=== PATIENT | female | born 1970 | race Caucasian/White ===

== ENCOUNTER → 2019-03-11 10:19 | Outpatient (CLI) | payer BC, SELFPAY ==
--- NOTE | ~2019-03-11 | XR_ITS ---
EXAMINATION: XR chest 2V 03/11/2019 10:26 INDICATION: Chest palpitations PROCEDURE: 2 view chest COMPARISON: No prior studies for comparison. FINDINGS: The lungs are clear. The cardiomediastinal silhouette is within normal limits. There are no pleural effusions. There is no pneumothorax suspected. IMPRESSION: 1: NO ACUTE CARDIOPULMONARY DISEASE. Reviewed, dictated and finalized at location A. T SERVICES ATTENDANT
== END ==
PROVIDERS: PCP Family Medicine; Visit Provider Family Medicine
DX: R00.2 Palpitations (principal)
CPT/HCPCS: 71046

== ENCOUNTER 2019-04-04 10:20 | Outpatient (CLI) | payer BC, SELFPAY ==
--- NOTE | 2019-04-06 15:37 | WPDHOLTEREM ---
Holter/Event Monitor Holter/Event Monitor Date of procedure: 04/06/19 Procedure Type: 48 hour Holter monitor Diagnosis: palpitations Indications: palpitations Image/Tracing Quality: good Finding: underlying normal sinus rhythm with heart rate variability between 54 and 156 beats per minute with an average heart rate of 81 beats per minute. Low frequency ventricular ectopy totaling 192 beats. This consisted of 2 couplets, 2 interpolated PVCs and all the rest were isolated single premature ventricular contractions. No sustained or nonsustained runs of ventricular arrhythmia. Frequent supraventricular ectopy totaling 4389 beats ( 1.9%) This did consistent 10 atrial runs totaling 107 beats with the longest run being for 24 beats in a fastest run being at a rate of 158 beats per minute. There is also 79 atrial couplets 3973 isolated PACs, 3 beats in atrial bigeminy and 148 beats in atrial trigeminy. No atrial fibrillation Longest RR interval was 1.5 seconds. The AV and IV conduction systems were within normal limits. Three symptom events of fluttering in the chest were reviewed. These correlated at that exact time to sinus rhythm only and on 1 occasion premature atrial contractions. Conclusion: 1. Underlying normal sinus rhythm with average heart rate of 81 beats per minute. 2. Low frequency ventricular ectopy 3. Frequent supraventricular ectopy including several short atrial runs which appeared to be runs of atrial tachycardia as detailed above. Also frequent isolated PACs and rare atrial bigeminy and atrial trigeminy. 4. No significant pauses or heart block. No atrial fibrillation
== END 2019-04-04 10:21 | disposition home or self-care (01) ==
PROVIDERS: PCP Family Medicine; Visit Provider Family Medicine
DX: R00.2 Palpitations (principal)
CPT/HCPCS: 93225; 93226

== ENCOUNTER → 2019-08-25 07:49 | Outpatient (CLI) | payer BC, SELFPAY ==
--- NOTE | ~2019-08-25 | MMUS_ITS ---
EXAMINATION: MM diagnostic anastacio BI w deny, US breast RT limited HISTORY: Six-month follow-up for probably benign right breast mass TECHNIQUE: Craniocaudal, mediolateral, and mediolateral oblique 3-D tomosynthesis images of the right breast were performed and synthetic 2-D images were generated. CAD analysis was submitted and interp reted. High resolution limited right breast ultrasound was performed. COMPARISON: 03/09/2019, 07/14/2018, 07/07/2018, 06/24/2017, 04/14/2012 BREAST PARENCHYMAL COMPOSITION: The breasts are heterogeneously dense, which may obscure small masses . FINDINGS: MAMMOGRAPHIC FINDINGS: Right breast: An asymmetry in the anterior third of the lower inner right breast is stable on multipl e prior examinations. There has been no suspicious interval change. There is no suspicious mass, calc ification, or architectural distortion. Left breast: There is no evidence of suspicious mass, calcification, or architectural distortion to suggest malignancy. There has been no suspicious interval change. ULTRASOUND: A 4 mm x 2 mm oval, circumscribed, parallel, hypoechoic mass with no posterior features or internal v ascularity is seen at the 4:00 location 4 cm from the nipple. No new suspicious cystic or solid mass is identified. IMPRESSION: 1. Stable, probably benign right breast mass 2. Given one year of interval stability, recommend 12 month followup right diagnostic mammogram and u ltrasound. BI-RADS category 3, probably benign findings. Reviewed, dictated and finalized at location A. IMPRESSION: 1. Stable, probably benign right breast mass 2. Given one year of interval stability, recommend 12 month followup right diag nostic mammogram and ultrasound. BI-RADS category 3, probably benign findings.
== END ==
PROVIDERS: Referring Provider Obstetrics & Gynecology Gynecology; Visit Provider Nurse Practitioner
DX: R92.8 Other abnormal and inconclusive findings on diagnostic imaging of breast (principal)
CPT/HCPCS: 76642; 77062; 77066; G0279

== ENCOUNTER → 2020-08-26 08:16 | Outpatient (CLI) | payer OTHER, SELFPAY ==
--- NOTE | ~2020-08-26 | MMUS_ITS ---
EXAMINATION: MM diagnostic anastacio BI w deny, US breast RT limited HISTORY: Follow-up right breast asymmetries TECHNIQUE: Additional 3-D tomosynthesis images of the right breast were performed and synthetic 2-D i mages were generated. CAD analysis was submitted and interpreted. High resolution Limited right breas t ultrasound was performed. COMPARISON: Comparison to multiple prior studies sequentially, with oldest reviewed study dated 09/2016. BREAST PARENCHYMAL COMPOSITION: The breasts are heterogenously dense, which may obscure small masses FINDINGS: MAMMOGRAPHIC FINDINGS: . There are no discrete masses, calcifications or architectural distortion to suggest malignancy. Foc al asymmetry medial aspect of the right breast is not significantly changed. ULTRASOUND: Limited right breast ultrasound: Normal heterogeneous echotexture without focal solid or cystic mass. IMPRESSION: 1. No evidence for malignancy in the right breast. 2. Routine yearly screening mammogram and regular clinical breast examination are recommended. BI-RADS Category 2: Benign finding(s). Reviewed, dictated and finalized at location A. IMPRESSION: 1. No evidence for malignancy in the right breast. 2. Routine yearly screening mammogram and regular clinical breast examination a re recommended. BI-RADS Category 2: Benign finding(s).
== END ==
PROVIDERS: PCP Family Medicine; Visit Provider Obstetrics & Gynecology Gynecology
DX: R92.8 Other abnormal and inconclusive findings on diagnostic imaging of breast (principal)
CPT/HCPCS: 76642; 77062; 77066; G0279

== ENCOUNTER → 2021-10-01 15:07 | Outpatient (CLI) | payer OTHER, SELFPAY ==
--- NOTE | ~2021-10-01 | MM_ITS ---
EXAMINATION: MM screening anastacio BI w deny HISTORY: Screening TECHNIQUE: Craniocaudal and mediolateral oblique 3-D tomosynthesis images were obtained and synthetic 2-D images were generated. CAD analysis was submitted and interpreted. COMPARISON: Comparison to multiple prior studies sequentially, with oldest reviewed study dated 06/24. BREAST PARENCHYMAL COMPOSITION: The breasts are heterogeneously dense, which may obscure small masses FINDINGS: There are benign right breast calcifications which layer on the MLO view. There is no evide nce of suspicious mass, calcification, or architectural distortion to suggest malignancy in either br east. There has been no suspicious interval change. IMPRESSION: 1. No mammographic evidence of malignancy. 2. Recommend routine screening mammography in one year. BI-RADS Category 2: Benign finding(s). Reviewed, dictated and finalized at location A.
== END ==
PROVIDERS: PCP Family Medicine; Visit Provider Nurse Practitioner
DX: Z12.31 Encounter for screening mammogram for malignant neoplasm of breast (principal)
CPT/HCPCS: 77063; 77067

== ENCOUNTER → 2022-11-04 12:45 | Outpatient (CLI) | payer BC, SELFPAY ==
--- NOTE | ~2022-11-04 | MM_ITS ---
EXAMINATION: MM screening anastacio BI w deny HISTORY: Screening mammogram TECHNIQUE: Craniocaudal and mediolateral oblique 3-D tomosynthesis images were obtained and synthetic 2-D images were generated. CAD analysis was submitted and interpreted. COMPARISON: 09/27/2021 bilateral screening mammogram 08/26/2020 diagnostic bilateral mammogram and limited right breast ultrasound examination 08/25/2019 diagnostic bilateral mammogram and limited right breast ultrasound 02/20/2019 diagnostic right mammogram and complete right breast ultrasound examination 07/14/2018 right diagnostic mammogram and complete right breast ultrasound 07/07/2018 bilateral screening mammogram BREAST PARENCHYMAL COMPOSITION: The breasts are heterogeneously dense, which may obscure small masses . FINDINGS: Scattered bilateral benign calcifications are noted. There is no evidence of suspicious mas s, calcification, or architectural distortion to suggest malignancy in either breast. There has been no suspicious interval change. IMPRESSION: 1. No mammographic evidence of malignancy. 2. Recommend routine screening mammography in one year. BI-RADS Category 2: Benign finding(s). Reviewed, dictated and finalized at location A.
== END ==
PROVIDERS: PCP Nurse Practitioner; Visit Provider Nurse Practitioner
DX: Z12.31 Encounter for screening mammogram for malignant neoplasm of breast (principal)
CPT/HCPCS: 77063; 77067

== ENCOUNTER 2024-01-04 12:50 | Outpatient (CLI) | payer BC, SELFPAY ==
--- NOTE | ~2024-01-04 | DEXA_ITS ---
Bone Density Report Name: FLASH FREEDMAN Age: 53 Sex: Female Ethnicity: White Date of : 1970 Indication: postmenopausal; screening for osteoporosis; Referring Provider: ANUP ROSARIO Study: Bone densitometry was performed. Exam Date: January 04, 2024 Accession number: [id number] Bone Density: Region BMD T-score Z-score Classification AP Spine(L1-L4) 1.013 -0.3 0.7 Normal Femoral Neck (Left) 0.958 1.0 2.0 Normal Total Hip (Left) 1.164 1.8 2.5 Normal Femoral Neck (Right) 0.930 0.7 1.8 Normal Total Hip (Right) 1.157 1.8 2.4 Normal Total Hip Mean 1.161 1.8 2.5 Normal World Health Organization criteria for BMD impression classify patients as: Normal (T-score at or above -1.0), Osteopenia (T-score between -1.0 and -2.5), or Osteoporosis (T-score at or below -2.5). 10-year Fracture Risk: FRAX not reported because: All T-scores for Spine Total, Hip Total, Femoral Neck at or above -1.0 Clinical Information Provided by Patient: Patient maximum height was 63 Menopause Age: 46 Drinks caffeinated beverages Onset of menses at age 14 Number of children 2 Impression: The patient has normal bone mass. Discussion: BONE DENSITY IS ABOVE THE MINIMUM DESIRABLE LEVEL AT ALL SKELETAL SITES TESTED. This patient?s bone mineral density is above the minimum desirable level (T-score -1.0 or better) at all sites measured. The patient should follow a healthful lifestyle (good nutrition with adequate calcium and vitamin D, and appropriate weight-bearing exercise). Follow-Up: Consider repeating this study in 5 years or sooner if there is some new clinical indication. Reported by: CRISTINA on 01/04/2024 1:48:00 PM. Reviewed, dictated and finalized at location AYury CONTRERAS
== END 2024-01-04 12:51 | disposition home or self-care (01) ==
PROVIDERS: PCP Nurse Practitioner; Visit Provider Obstetrics & Gynecology Gynecology
DX: Z78.0 Asymptomatic menopausal state (principal)
CPT/HCPCS: 77080

== ENCOUNTER 2024-04-05 08:10 | Outpatient (CLI) | payer BC, SELFPAY ==
--- NOTE | ~2024-04-05 | MM_ITS ---
EXAMINATION: MM screening anastacio BI w deny HISTORY: Screening mammogram TECHNIQUE: Craniocaudal and mediolateral oblique 3-D tomosynthesis images were obtained and synthetic 2-D images were generated. CAD analysis was submitted and interpreted. COMPARISON: 11/04/2022, 10/01/2021, 08/26/2020 BREAST PARENCHYMAL COMPOSITION:Not Dense. There are scattered areas of fibroglandular density. FINDINGS: Possible developing asymmetry of the outer, posterior left breast. Stable parenchymal appea taras of the right breast. No suspicious microcalcifications. IMPRESSION: Possible developing left breast asymmetry, as above. Spot compression views, and possibly ultrasound, recommended for further evaluation. BI-RADS Category 0: Incomplete: Needs additional imaging evaluation. Reviewed, dictated and finalized at location . CITOR REPAIRER IMPRESSION: Possible developing left breast asymmetry, as above. Spot compression views, an d possibly ultrasound, recommended for further evaluation. BI-RADS Category 0: Incomplete: Needs additional imaging evaluation.
--- OUTSIDE RECORDS SUMMARY | 2024-04-05 08:25 | XMS_ITS | Patient Health Summary ---
Author Organization [facility] Address [address] [place] [address] Care Team Providers Care Shovel Log Loader Operator Name Role Phone Unavailable Primary Care Provider Unavailabl e Note from [facility] [place],non-owned Affiliates and Associated Physician Practices is amultiple site organization consisting of ambulatory clinics and hospital sitesin [place], [place], [place] and [place]. This disclosure is being madepursuant to the Care Everywhere program and may not contain all information available regarding this patient. Last updated 17.[facility] Allergies No known active allergies Medications * Be aware that medications may not be up to date on this document. Alwaysverify current medications with the patient. * Norethin-Eth Estrad Triphasic (ORTHO-NOVUM , 28, PO) * fluticasone propionate (FLONASE) 50 MCG/ACT nasal spray(Started 12/06/2015) [place] 2 Sprays into each nostril once daily Social History Tobacco Use Types Packs/Day Years Used Date Smoking Tobacco: Never Assessed Sex and Gender Information Value Date Recorded Sex Assigned at Not on file Gender Identity Not on file Sexual Orientation Not on file Last Filed Vital Signs Vital Sign Reading Time Taken Comments Blood Pressure 128/78 12/06/2015 5:13 PM CDT Pulse 71 12/06/2015 5:13 PM CDT Temperature 36.9 C (98.5 F) 12/06/2015 5:13 PM CDT Respiratory Rate 18 12/06/2015 5:13 PM CDT Oxygen Saturation - - Inhaled Oxygen Concentration - - Weight 73.5 kg (162 lb) 12/06/2015 5:13 PM CDT Height 160 cm (5' 3 ) 12/06/2015 5:13 PM CDT Body Mass Index 28.7 12/06/2015 5:13 PM CDT Procedures * DERMATOPATHOLOGY(Performed 03/10/2017) * DERMATOPATHOLOGY(Performed 03/19/2011) Results * PATHOLOGY TISSUE FOR DERMATOLOGY (03/10/2017 12:00 AM HARD CANDY BATCH MIXER) Only the most recent of2 resultswithin the time period is included. Result CASE: [id number] PATIENT: MARISSA ANDERSON PATHOLOGIC DIAGNOSIS: Left mid triceps: COMPOUND MELANOCYTIC NEVUS PRESENT AT MARGIN (see microscopic description) CLINICAL DATA: R/O dys nevus. Check margins. GROSS DESCRIPTION: Received is one formalin filled container labeled with the patients name and designated left mid triceps. The specimen consists of a punch biopsy measuring [id number]. The margin is inked green. The specimen is bisected and submitted in 1 cassette. Jar 0. MICROSCOPIC DESCRIPTION: There are nests of melanocytes at the dermal-epider mal junction and within the dermis that are highlighted by MART-1/Melan A. Additional deeper sections were obtained and reviewed. This lesion is present at the margin of the specimen. Electronicall y signed out by Keisha Vazquez M.D., PhD. 03/12/2017 5:36:27PM DERMATOPATHOLOGY LABORATORY Comment: Performed at: Dermatopathology Laboratory [facility] - Department of Dermatology [address] [place] [address] Phone number: [phone] FAX: [phone] 03/10/2017 03/11/2017 Renaldo Adamson MD LAB - PATHOLOGY/CYTO LOGY ORDERABLES DERMATOPATHOLOGY LABORATORY [facility] - Department of Dermatology [address] [place] [address] [place] [address], [facility] [phone]
--- OUTSIDE RECORDS SUMMARY | 2024-04-05 08:25 | XMS_ITS | Clinical Summary ---
Author Organization [facility] Address [address] [place] [address] Care Team Providers Care Rf Technician Name Role Phone Unavailable Primary Care Provider Unavailabl e Source Comments [facility],non-owned Affiliates and Associated Physician Practices is amultiple site organization consisting of ambulatory clinics and hospital sitesin [place], [place], [place] and [place]. This disclosure is being madepursuant to the Care Everywhere program and may not contain all information available regarding this patient. Last updated 17.[facility] Allergies No known active allergies Medications * Be aware that medications may not be up to date on this document. Alwaysverify current medications with the patient. Medication Sig Dispensed Refills Start Date End Date Status Norethin-Eth Estrad Triphasic (ORTHO-NOVUM , 28, PO) Active fluticasone propionate (FLONASE) 50 MCG/ACT nasal spray [place] 2 Sprays into each nostril once daily 1 Bottle 12/06/2015 Active Social History Tobacco Use Types Packs/Day Years [...] Mass Index 28.7 12/06/2015 5:13 PM CDT Plan of Treatment Health Maintenance Due Date Last Done Comments COLOGUARD (AGES 45-75) - COL ON CA SCREENING 1970 COLON MONITORING 1970 COLONOSCOPY - COLON CA SCREENING 1969 CT COLONOGRAPHY - COLON CA SCREENING 1970 Colorectal Cancer Screening 1970 FIT - COLON CA SCREENING 1969 FLEX SIG - COLON CA SCREENING 1969 LIPID TESTING 1970 MAMMOGRAM 1970 PAP SMEAR 1969 HIV SCREENING 1984 HEPATITIS C SCREENING 04/12/1987 DTAP/TDAP/TD VACCINES (1 - Tdap) 1988 HEPATITIS B VACCINE (1 of 3 - 19+ 3-dose series) 1988 PNEUMOCOCCAL VACCINE 50+ (1 of 1 - PCV) 04/17/2019 ZOSTER VACCINE (1 of 2) 04/17/2019 COVID-19 VACCINE (1 - 2023-2 5 season) 2023 INFLUENZA VACCINE (#1) 2023 DEPRESSION SCREENING 02/09/2024 HIB VACCINE Aged Out No longer eligi ble based on patient's age to complete this topic HPV VACCINE Aged Out No longer eligi ble based on patient's age to complete this topic MENINGOCOCCAL (Group B) VACCINE Aged Out No longer eligible based on patient's age to complete this topic MENINGOCOCCAL VACCINE Aged Out No mariel cora eligible based on patient's age to complete this topic PNEUMOCOCCAL VACCINE Aged Out No long er eligible based on patient's age to complete this topic
--- OUTSIDE RECORDS SUMMARY | 2024-04-05 08:25 | XMS_ITS | CONTINUITY OF CARE DOCUMENT ---
Author Name salo leong Address Unknown Organization [facility] Address [address] [place] [address] Phone [phone] Care Team Providers Care Diamond Die Driller Name Role Phone Jeramy Fisher MD Unavailable [phone] Jeramy Fisher MD Unavailable [phone] INSURANCE PROVIDERS Payer name Policy type / Coverage type [place] red constitution party ID [facility] [id number]
--- OUTSIDE RECORDS SUMMARY | 2024-04-05 08:25 | XMS_ITS | Referral Summary ---
Author Organization [facility] Address [address] [place] [address] Care Team Providers Care Operator Supply Name Role Phone Unavailable Primary Care Provider Unavailabl e Source Comments [facility],non-owned Affiliates and Associated Physician Practices is amultiple site organization consisting of ambulatory clinics and hospital sitesin [place], [place], [place] and [place]. This disclosure is being madepursuant to the Care Everywhere program and may not contain all information available regarding this patient. Last updated 17.[facility] Allergies No known active allergies Medications * Be aware that medications may not be up to date on this document. Alwaysverify current medications with the patient. Medication Sig Dispensed Refills Start Date End Date Status Norethin-Eth Estrad Triphasic (ORTHO-NOVUM , 28, PO) Active fluticasone propionate (FLONASE) 50 MCG/ACT nasal spray [place] 2 Sprays into each nostril once daily [...] 12/06/2015 5:13 PM CDT Plan of Treatment Not on file
== END 2024-04-05 08:11 | disposition home or self-care (01) ==
LOC: ANHIMG 08:15
PROVIDERS: Visit Provider Obstetrics & Gynecology Gynecology
DX: Z12.31 Encounter for screening mammogram for malignant neoplasm of breast (principal); R92.8 Other abnormal and inconclusive findings on diagnostic imaging of breast
CPT/HCPCS: 77063; 77067

== ENCOUNTER 2024-04-18 10:36 | Outpatient (CLI) | payer BC, SELFPAY ==
--- NOTE | ~2024-04-18 | MMUS_ITS ---
EXAMINATION: MM diagnostic anastacio LT w deny, US breast LT limited HISTORY: Left breast asymmetry TECHNIQUE: Additional 3-D tomosynthesis images of the left breast were performed and synthetic 2-D im ages were generated. CAD analysis was submitted and interpreted. High resolution limited left breast ultrasound was performed. COMPARISON: 04/05/2024, 11/04/2022 BREAST PARENCHYMAL COMPOSITION:Not Dense. There are scattered areas of fibroglandular density. FINDINGS: MAMMOGRAPHIC FINDINGS: Questionable persistent 8 mm low-density mass at the outer left breast on spot compression. ULTRASOUND: At the 3:00 position left breast, 4 cm from the nipple, there is a 5 mm round cyst. IMPRESSION: No evidence of malignancy. 5 mm left breast cyst, as detailed above. BI-RADS Category 2: Benign finding(s). Reviewed, dictated and finalized at [facility]. IMPRESSION: No evidence of malignancy. 5 mm left breast cyst, as detailed above. BI-RADS Category 2: Benign finding(s).
--- OUTSIDE RECORDS SUMMARY | 2024-04-18 12:10 | XMS_ITS | Referral Summary ---
Author Organization [facility] Address [address] [place] [address] Care Team Providers Care Service Crew Supervisor Name Role Phone Unavailable Primary Care Provider Unavailabl e Source Comments [facility],non-owned Affiliates and Associated Physician Practices is amultiple site organization consisting of ambulatory clinics and hospital sitesin [place] and [place]. This disclosure is being madepursuant to the Care Everywhere program and may not contain all information available regarding this patient. Last updated 17.[facility] Allergies No known active allergies Medications * Be aware that medications may not be up to date on this document. Alwaysverify current medications with the patient. Medication Sig Dispensed Refills Start Date End Date Status Norethin-Eth Estrad Triphasic (ORTHO-NOVUM , 28, PO) Active fluticasone propionate (FLONASE) 50 MCG/ACT nasal spray [place] 2 Sprays into each nostril once daily [...]
--- OUTSIDE RECORDS SUMMARY | 2024-04-18 12:10 | XMS_ITS | CONTINUITY OF CARE DOCUMENT ---
Author Name salo leong Address Unknown Organization [facility] Address [address] [place] [address] Phone [phone] Care Team Providers Care Escrow Secretary Name Role Phone Jeramy Fisher MD Unavailable [phone] Jeramy Fisher MD Unavailable [phone] INSURANCE PROVIDERS Payer name Policy type / Coverage type [place] red democrat ID [facility] [id number]
--- OUTSIDE RECORDS SUMMARY | 2024-04-18 12:10 | XMS_ITS | Clinical Summary ---
Author Organization [facility] Address [address] [place] [address] Care Team Providers Care Flooring Installer Name Role Phone Unavailable Primary Care Provider Unavailabl e Source Comments [facility],non-owned Affiliates and Associated Physician Practices is amultiple site organization consisting of ambulatory clinics and hospital sitesin [place], [place], [place] and [place]. This disclosure is being madepursuant to the Care Everywhere program and may not contain all information available regarding this patient. Last updated 17.[facility] Allergies No known active allergies Medications * Be aware that medications may not be up to date on this document. Alwaysverify current medications with the patient. Medication Sig Dispensed Refills Start Date End Date Status Norethin-Eth Estrad Triphasic (ORTHO-NOVUM , 28, PO) Active fluticasone propionate (FLONASE) 50 MCG/ACT nasal spray [place] 2 Sprays into each nostril once daily [...]
--- OUTSIDE RECORDS SUMMARY | 2024-04-18 12:10 | XMS_ITS | Patient Health Summary ---
Author Organization [facility] Address [address] [place] [address] Care Team Providers Care Caustic Room Operator Name Role Phone Unavailable Primary Care Provider Unavailabl e Note from [facility],non-owned Affiliates and Associated Physician Practices is amultiple site organization consisting of ambulatory clinics and hospital sitesin [place], [place], [place] and [place]. This disclosure is being madepursuant to the Care Everywhere program and may not contain all information available regarding this patient. Last updated 17.[facility] Allergies No known active allergies Medications * Be aware that medications may not be up to date on this document. Alwaysverify current medications with the patient. * Norethin-Eth Estrad Triphasic (ORTHO-NOVUM , 28, PO) * fluticasone propionate (FLONASE) 50 MCG/ACT nasal spray(Started 12/06/2015) [place] 2 Sprays into each nostril once daily [...] PATHOLOGY TISSUE FOR DERMATOLOGY (03/10/2017 12:00 AM FLEET ADMINISTRATOR) Only the most recent of2 resultswithin the time period is included. Result CASE: [id number] PATIENT: MARISSA ANDERSON PATHOLOGIC DIAGNOSIS: Left mid triceps: COMPOUND MELANOCYTIC NEVUS PRESENT AT MARGIN (see microscopic description) CLINICAL DATA: R/O dys nevus. Check margins. GROSS DESCRIPTION: Received is one formalin filled container labeled with the patients name and designated left mid triceps. The specimen consists of a punch biopsy measuring [id number]. The margin is inked green. The specimen [...] DERMATOPATHOLOGY LABORATORY Comment: Performed at: Dermatopathology Laboratory [facility] - Department of Dermatology [address] [place] [address] Phone number: [phone] FAX: [phone] 03/10/2017 03/11/2017 Renaldo Adamson MD LAB - PATHOLOGY/CYTO LOGY ORDERABLES DERMATOPATHOLOGY LABORATORY [facility] - Department of Dermatology [address] [place] [address] [place] [address], [facility] [phone]
== END 2024-04-18 10:37 | disposition home or self-care (01) ==
LOC: ANHIMG 10:40
PROVIDERS: Visit Provider Nurse Practitioner Women's Health
DX: R92.8 Other abnormal and inconclusive findings on diagnostic imaging of breast (principal)
CPT/HCPCS: 76642; 77061; 77065; G0279